=== PATIENT | female | born 1960 | race Hispanic/Latino ===

== ENCOUNTER 2021-01-01 09:34 | Emergency (ER) | payer BC ==
[2021-01-01 09:56] VITALS: BP 132/96
[2021-01-01 11:16] LABS: Hematocrit 37.9 % (30.3-42.9); Hemoglobin 13.1 gm/dl (10.1-14.3); Mean Corpuscular HGB Conc 35 % (30-34); Mean Corpuscular Volume 89 fl (79-97); Platelet Count 297 K/mm3 (140-440); Red Blood Count 4.25 M/mm3 (3.65-5.03); Red Cell Distribution Width 13.7 % (13.2-15.2)
[2021-01-01 11:31] LABS: Alanine Aminotransferase 40 units/L (7-56); Albumin 4.3 g/dL (3.9-5); Blood Urea Nitrogen 22 mg/dL (7-17); Calcium 9.9 mg/dL (8.4-10.2); Hemolysis Index 1
[2021-01-01 11:38] LABS: BUN/Creatinine Ratio 31
[2021-01-01] MEDS ORDERED: SODIUM CHLORIDE 0.9% 1000 ML 1,000 ML IV ONE (14:25)
[2021-01-01] MEDS ORDERED: ONDANSETRON 4 MG/2 ML INJ IV ONE (14:25)
--- NOTE | 2021-01-01 14:30 | Emergency Department Report ---
ED N/V/D HPI - General Chief complaint: Nausea/Vomiting/Diarrhea Stated complaint: VOMITING Time Seen by Provider: 01/01/21 14:24 Source: patient Mode of arrival: Ambulatory Limitations: No Limitations - History of Present Illness Initial comments: 60-year-old female presents to the emergency room stating that she is had vomiting for the last 15 hours that started last night. Patient denies any abdominal pain. She reports of intermittent right hand and arm pain and numbness. Patient has not vomited in the last 4 hours. She reports she was able to drink a soda at 10:00. She states she was struck by half while taking little sips. Patient reports she has a history of anxiety fibromyalgia degenerative disc disease sleep apnea. Patient reports she is followed by Dr. Eh Street. complaint: nausea, vomiting -: Last night Description of Vomiting: food contents, watery Associated Abdominal Pain: No Severity: mild - Related Data Previous Rx's Medication Instructions Recorded Last Taken Type Ondansetron [Zofran Odt] 4 mg PO Q8HR PRN #8 tab.moosedis 01/01/21 Unknown Rx Allergies Allergy/AdvReac Type Severity Reaction Status Date / Time No Known Allergies Allergy Unverified 01/01/21 09:49 ED Review of Systems ROS: Stated complaint: VOMITING Other details as noted in HPI ED Past Medical Hx - Past Medical History Previous Medical History?: Yes Hx Hypertension: Yes Additional medical history: fibromyalgia, sleep apnea, DDD - Surgical History Past Surgical History?: Yes Additional Surgical History: angelica hip replacement, back surgery - Medications Home Medications: Home Medications Medication Instructions Recorded Confirmed Last Taken Type Ondansetron [Zofran Odt] 4 mg PO Q8HR PRN #8 tab.moosedis 01/01/21 Unknown Rx ED Physical Exam - General Limitations: No Limitations General appearance: alert, in no apparent distress - Head Head exam: Present: atraumatic, normocephalic - Eye Eye exam: Present: normal appearance - ENT ENT exam: Present: mucous membranes moist - Neck Neck exam: Present: normal inspection - Respiratory Respiratory exam: Present: normal lung sounds bilaterally. Absent: respiratory distress - Cardiovascular Cardiovascular Exam: Present: regular rate, normal rhythm. Absent: systolic murmur, diastolic murmur, rubs, gallop - GI/Abdominal GI/Abdominal exam: Present: soft, normal bowel sounds - Extremities Exam Extremities exam: Present: normal inspection - Back Exam Back exam: Present: normal inspection - Neurological Exam Neurological exam: Present: alert, oriented X3 - Psychiatric Psychiatric exam: Present: normal affect, normal mood - Skin Skin exam: Present: warm, dry, intact, normal color. Absent: rash ED Course Vital Signs 01/01/21 09:52 Temperature 98.3 F Pulse Rate 96 H Respiratory 20 Rate Blood Pressure 132/96 O2 Sat by Pulse 94 Oximetry - Reevaluation(s) Reevaluation #1: 01/01/21 16:17 Reevaluated patient heart rate is 86 she reports she feels little bit better asking for ice water. ED Medical Decision Making - Lab Data Result diagrams: 01/01/21 10:48 01/01/21 10:48 - Medical Decision Making 60-year-old female presents to the emergency room stating that she is had vomiting for the last 15 hours that started last night. Patient denies any abdominal pain. She reports of intermittent right hand and arm pain and numbness. Patient has not vomited in the last 4 hours. She reports she was able to drink a soda at 10:00. She states she was struck by half while taking little sips. Patient reports she has a history of anxiety fibromyalgia degenerative disc disease sleep apnea. Patient reports she is followed by Dr. Eh Street. Patient has not vomited since being here in the emergency room. Patient was given a liter of normal saline Zofran and passed a p.o. challenge patient is to follow-up with Dr. Street Critical care attestation.: If time is entered above; I have spent that time in minutes in the direct care of this critically ill patient, excluding procedure time. ED Disposition Clinical Impression: Nausea and vomiting in adult Disposition: DC-01 TO HOME OR SELFCARE Is pt being admited?: No Does the pt Need Aspirin: No Condition: Stable Instructions: Nausea and Vomiting, Adult, Crcq-[id number] Prescriptions: Ondansetron [Zofran Odt] 4 mg PO Q8HR PRN #8 tab.rapdis PRN Reason: Nausea And Vomiting Referrals: PRIMARY CARE, [Primary Care Provider] - 3-[address] MD [Staff Physician] - 3-5 Days
[2021-01-01 15:23] LABS: Band Neutrophils # (Manual) 0.2 K/mm3; Platelet Estimate Consistent w Auto; RBC Morphology Normal; Total Cells Counted 100
== END 2021-01-01 17:08 | disposition home or self-care (01) ==
LOC: ED 09:34
DX: R11.2 Nausea with vomiting, unspecified (principal); I10 Essential (primary) hypertension; Z79.899 Other long term (current) drug therapy; Z98.890 Other specified postprocedural states
CPT/HCPCS: 36415; 80053; 85007; 85025; 96361; 96374; 99283; J2405; J7030

== ENCOUNTER 2021-01-31 10:45 | Outpatient (CLI) | payer BC ==
--- NOTE | 2021-01-31 12:58 | Cat Scan Report ---
CT SINONASAL CAVITY WITHOUT CONTRAST CLINICAL HISTORY: chronic sinusitis TECHNIQUE: 2.5 mm thick contiguous axial scans were obtained through the sinonasal cavity. In addition to evalu ation of axial source images sagittal and coronal reconstructions were produced and reviewed for this report. All CT examinations performed at this institution utilize automated dose reduction to achieve A L A R A goals. FINDINGS: PARANASAL SINUSES: A small retention cyst or polyp is identified in the base of the left maxillary si nus posteriorly. Maxillary, ethmoid, sphenoid and frontal sinuses are otherwise free from inflammator y mucosal disease time of this study. NASAL CAVITY: A near midline nasal septum is noted. Paradoxical curvature of the middle turbinates is noted producing narrowing of the air passageways in the region of the middle meatus bilaterally. The re passageways of the nasomaxillary ducts, infundibulum and hiatus semilunaris are narrowed but aerat ed bilaterally. FACIAL BONES:No evidence of fracture or other osseous abnormality TEMPORAL BONES: Normal pneumatization of the mastoid air cells is demonstrated bilaterally. No abnorm alities are seen on evaluation of the middle ear cavities. ORBITS: No abnormalities are identified on evaluation of the orbits on this noncontrast CT sinonasal study. BRANCH SERVICE ASSOCIATE SPACE STRUCTURESNo significant abnormalities are seen to involve the network security architect space stru ctures. CRANIOCERVICAL JUNCTION: No abnormality. VISUALIZED INTRACRANIAL STRUCTURES: Note is made of hyperostosis frontalis interna. Included intracra nial structures have an otherwise unremarkable appearance. IMPRESSION: 1. No significant inflammatory changes are present within the paranasal sinuses. 2. The air passageways of the OM U are narrowed but aerated at the time of this study as described ab santos. Signer Name: Bucky Grewal MD Signed: 01/31/2021 12:53 PM Workstation Name: [id number]
== END 2021-01-31 10:46 | disposition home or self-care (01) ==
LOC: CT 10:45
PROVIDERS: ATTEND Otolaryngology
DX: J32.9 Chronic sinusitis, unspecified (principal)
CPT/HCPCS: 70486

== ENCOUNTER 2021-02-26 13:45 | Outpatient (CLI) | payer BC ==
--- NOTE | 2021-02-26 16:07 | Magnetic Resonance Report ---
MRI LUMBAR SPINE 02/26/2021 INDICATION / CLINICAL INFORMATION: LUMBAR POST-LAMINECTOMY SYNDROME. COMPARISON: None available. FINDINGS: GENERAL OBSERVATIONS: Unenhanced MR images of the lumbar spine were obtained. Right convex scoliosis is centered at the L2-3 level. There is been prior laminectomy and fusion at the L3, L4, and L5 levels. Degenerative changes and can al stenosis is present at L2-3 as described below. [id number] ANALYSIS: L5-S1: Moderate diffuse disc bulging and canal narrowing is present with no evidence of lateralizatio n. L4-5: Status post laminectomy and fusion. Bilateral pedicle screws are present at L4 and L5. L3-4: Status post laminectomy and fusion, with bilateral pedicle screws at L3 and L4. No evidence of stenosis or nerve root compression. L2-3: Disc space narrowing and slight retrolisthesis associated with moderately severe central canal narrowing. L1-2: Mild diffuse disc bulging. BONE MARROW: No significant abnormality. Degenerative changes. 2.2 cm hemangioma at T11. PARASPINAL SOFT TISSUES: No significant abnormality. IMPRESSION: Postoperative and degenerative changes as detailed above. Moderately severe central canal narrowing a t L2-3. Signer Name: Case Edwards MD Signed: 02/26/2021 4:01 PM Workstation Name: [id number]
== END 2021-02-26 13:46 | disposition home or self-care (01) ==
LOC: MRI 13:45
PROVIDERS: ATTEND Anesthesiology
DX: M51.37 Other intervertebral disc degeneration, lumbosacral region (principal); M96.1 Postlaminectomy syndrome, not elsewhere classified; M48.061 Spinal stenosis, lumbar region without neurogenic claudication; M47.817 Spondylosis without myelopathy or radiculopathy, lumbosacral region
CPT/HCPCS: 72148

== ENCOUNTER 2021-04-26 11:55 | Emergency (ER) | payer BC ==
[2021-04-26] MEDS ORDERED: SODIUM CHLORIDE 0.9% 1000 ML 1,000 ML IV ONE (12:30)
[2021-04-26] MEDS ORDERED: ONDANSETRON 4 MG/2 ML INJ IV ONE (12:30)
--- NOTE | 2021-04-26 12:55 | XRay Report ---
Abdominal series with frontal chest INDICATION: Chest pain nausea vomiting IMPRESSION: No acute findings. Signer Name: Ned Wills MD Signed: 04/26/2021 12:51 PM Workstation Name: [id number]
[2021-04-26 13:46] LABS: Basophils % (Auto) 0.5 % (0.0-1.8); Eosinophils # (Auto) 0.1 K/mm3 (0.0-0.4); Eosinophils % (Auto) 0.8 % (0.0-4.3); Hematocrit 45.3 % (30.3-42.9); Lymphocytes % (Auto) 24.3 % (13.4-35.0); Mean Corpuscular HGB Conc 33 % (30-34); Mean Corpuscular Volume 89 fl (79-97); Monocytes # (Auto) 0.9 K/mm3 (0.0-0.8); Monocytes % (Auto) 10.6 % (0.0-7.3); Platelet Count 399 K/mm3 (140-440); Red Blood Count 5.12 M/mm3 (3.65-5.03); Red Cell Distribution Width 14.9 % (13.2-15.2)
[2021-04-26 14:06] LABS: Alanine Aminotransferase 45 units/L (7-56); Albumin 4.7 g/dL (3.9-5); BUN/Creatinine Ratio 26; Blood Urea Nitrogen 21 mg/dL (7-17); Calcium 9.7 mg/dL (8.4-10.2); Hemolysis Index 6
--- NOTE | 2021-04-26 15:23 | Emergency Department Report ---
ED N/V/D HPI - General Chief complaint: Nausea/Vomiting/Diarrhea Stated complaint: VOMITTING Time Seen by Provider: 04/26/21 12:15 Source: patient Mode of arrival: Wheelchair Limitations: No Limitations - History of Present Illness Initial comments: This is a 60-year-old female nontoxic, well nourished in appearance, no acute signs of distress presents to the ED with c/o of nausea and vomiting several days. Patient stated has also constipation. Patient stated she is on narcotics for chronic pain which stated caused her to have constipation. Patient describes vomiting as food content. Patient denies any abdominal pain, chest pain, short of breath, fever, chills, headache, stiff neck, numbness or tingling. Patient denies any diarrhea. Denies any blood in stool. Patient denies any recent travels. Patient denies any drug allergies. MD complaint: nausea, vomiting -: days(s) Associated Abdominal Pain: No Radiation: none Severity: mild Pain Scale: 0 Improves with: none Worsens with: none Associated Symptoms: nausea/vomiting. denies: myalgias, chest pain, cough, diaphoresis, fever/chills, headaches, loss of appetite, malaise, rash, dysuria, shortness of breath, syncope, weakness - Related Data Previous Rx's Medication Instructions Recorded Last Taken Type Ondansetron [Zofran Odt] 4 mg PO Q8HR PRN #8 tab.rapdis 01/01/21 Unknown Rx Ondansetron [Zofran Odt] 4 mg PO Q8HR PRN #12 tab.rapdis 04/26/21 Unknown Rx Allergies Allergy/AdvReac Type Severity Reaction Status Date / Time No Known Allergies Allergy Verified 04/26/21 12:00 ED Review of Systems ROS: Stated complaint: VOMITTING Other details as noted in HPI Comment: All other systems reviewed and negative Constitutional: denies: chills, fever Eyes: denies: eye pain, eye discharge, vision change ENT: denies: ear pain, throat pain Respiratory: denies: cough, shortness of breath, wheezing Cardiovascular: denies: chest pain, palpitations Endocrine: no symptoms reported Gastrointestinal: nausea, vomiting. denies: abdominal pain, diarrhea, constipation, hematemesis, melena, hematochezia Genitourinary: denies: urgency, dysuria, discharge Musculoskeletal: denies: back pain, joint swelling, arthralgia Skin: denies: rash, lesions Neurological: denies: headache, weakness, paresthesias Psychiatric: denies: anxiety, depression Hematological/Lymphatic: denies: easy bleeding, easy bruising ED Past Medical Hx - Past Medical History Previous Medical History?: Yes Hx Hypertension: Yes Additional medical history: fibromyalgia, sleep apnea, DDD - Surgical History Past Surgical History?: Yes Additional Surgical History: angelica hip replacement, back surgery - Social History Smoking Status: Never Smoker - Medications Home Medications: Home Medications Medication Instructions Recorded Confirmed Last Taken Type Ondansetron [Zofran Odt] 4 mg PO Q8HR PRN #8 tab.rapdis 01/01/21 Unknown Rx Ondansetron [Zofran Odt] 4 mg PO Q8HR PRN #12 tab.rapdis 04/26/21 Unknown Rx ED Physical Exam - General Limitations: No Limitations General appearance: alert, in no apparent distress - Head Head exam: Present: atraumatic, normocephalic - Eye Eye exam: Present: normal appearance - Neck Neck exam: Present: normal inspection, full ROM. Absent: lymphadenopathy - Respiratory Respiratory exam: Present: normal lung sounds bilaterally. Absent: respiratory distress, wheezes, rales, rhonchi, stridor, chest wall tenderness, accessory muscle use, decreased breath sounds, prolonged expiratory - Cardiovascular Cardiovascular Exam: Present: normal rhythm, tachycardia, normal heart sounds. Absent: irregular rhythm, systolic murmur, diastolic murmur, rubs, gallop - GI/Abdominal GI/Abdominal exam: Present: soft, normal bowel sounds. Absent: distended, tenderness, guarding, rebound, rigid, diminished bowel sounds - Extremities Exam Extremities exam: Present: normal inspection, full ROM, normal capillary refill. Absent: tenderness - Back Exam Back exam: Present: normal inspection, full ROM. Absent: tenderness, CVA tenderness (R), CVA tenderness (L), muscle spasm, paraspinal tenderness, vertebral tenderness, rash noted - Neurological Exam Neurological exam: Present: alert, oriented X3, normal gait - Psychiatric Psychiatric exam: Present: normal affect, normal mood - Skin Skin exam: Present: warm, dry, intact, normal color. Absent: rash ED Course Vital Signs 04/26/21 04/26/21 04/26/21 11:59 13:00 13:16 Temperature 99.2 F Pulse Rate 105 H Respiratory 18 Rate Blood Pressure 146/110 131/98 Blood Pressure 128/101 [Left] O2 Sat by Pulse 99 94 92 Oximetry 04/26/21 04/26/21 04/26/21 13:30 13:40 14:00 Temperature Pulse Rate Respiratory Rate Blood Pressure 146/110 152/89 Blood Pressure [Left] O2 Sat by Pulse 94 95 94 Oximetry 04/26/21 04/26/21 04/26/21 15:00 16:30 16:32 Temperature 99.7 F H Pulse Rate 100 H Respiratory 14 Rate Blood Pressure 142/90 148/92 Blood Pressure 148/92 [Left] O2 Sat by Pulse 96 91 97 Oximetry 04/26/21 17:00 Temperature Pulse Rate Respiratory Rate Blood Pressure 126/87 Blood Pressure [Left] O2 Sat by Pulse 93 Oximetry - Reevaluation(s) Reevaluation #1: 04/26/21 15:24 Patient is speaking in full sentences with no signs of distress noted. ED Medical Decision Making - Lab Data Result diagrams: 04/26/21 12:52 04/26/21 12:51 Lab Results 04/26/21 04/26/21 04/26/21 Range/Units 12:51 12:52 15:17 WBC 8.3 (4.5-11.0) K/mm3 RBC 5.12 H (3.65-5.03) M/mm3 Hgb 15.0 H (10.1-14.3) gm/dl Hct 45.3 H (30.3-42.9) % MCV 89 (79-97) fl MCH 29 (28-32) pg MCHC 33 (30-34) % RDW 14.9 (13.2-15.2) % Plt Count 399 (140-440) K/mm3 Lymph % (Auto) 24.3 (13.4-35.0) % [place] % (Auto) 10.6 H (0.0-7.3) % Eos % (Auto) 0.8 (0.0-4.3) % Baso % (Auto) 0.5 (0.0-1.8) % Lymph # (Auto) 2.0 (1.2-5.4) K/mm3 [place] # (Auto) 0.9 H (0.0-0.8) K/mm3 Eos # (Auto) 0.1 (0.0-0.4) K/mm3 Baso # (Auto) 0.0 (0.0-0.1) K/mm3 Seg Neutrophils % 63.8 (40.0-70.0) % Seg Neutrophils # 5.3 (1.8-7.7) K/mm3 Sodium 139 (137-145) mmol/L Potassium 4.0 (3.6-5.0) mmol/L Chloride 97.3 L (98-107) mmol/L Carbon Dioxide 25 (22-30) mmol/L Anion Gap 21 mmol/L BUN 21 H (7-17) mg/dL Creatinine 0.8 (0.6-1.2) mg/dL Estimated GFR > 60 ml/min BUN/Creatinine Ratio 26 % Glucose 101 H (65-100) mg/dL Calcium 9.7 (8.4-10.2) mg/dL Total Bilirubin 0.90 (0.1-1.2) mg/dL AST 52 H (5-40) units/L ALT 45 (7-56) units/L Alkaline Phosphatase 134 H (35-129) units/L Total Protein 8.1 (6.3-8.2) g/dL Albumin 4.7 (3.9-5) g/dL Albumin/Globulin Ratio 1.4 % Lipase 37 (13-60) units/L Urine Color Loren (Yellow) Urine Turbidity Slightly-cloudy (Clear) Urine pH 5.0 (5.0-7.0) Ur Specific [place] 1.027 (1.003-1.030) Urine Protein 30 mg/dl (Negative) mg/dL Urine Glucose (UA) Neg (Negative) mg/dL Urine Ketones Tr (Negative) mg/dL Urine Blood Neg (Negative) Urine Nitrite Neg (Negative) Urine Bilirubin Neg (Negative) Urine Urobilinogen < 2.0 (<2.0) mg/dL Ur Leukocyte Esterase Neg (Negative) Urine WBC (Auto) 2.0 (0.0-6.0) /HPF Urine RBC (Auto) 4.0 (0.0-6.0) /HPF U Epithel Cells (Auto) 11.0 (0-13.0) /HPF Urine Mucus 3+ /HPF - Radiology Data [facility] [address] [place] [address] XRay Report Signed Patient: SOCORRO QUINTANA MR#: [id number] : 1960 Acct:[id number] Age/Sex: 60 / F ADM Date: 04/26/21 Loc: ED Attending Dr: Ordering Physician: NIRALI WOLF NP Date of Service: 04/26/21 Procedure(s): XR abd series w cxr 1V Accession Number(s): [id number] cc: NIRALI WOLF NP Fluoro Time In Minutes: Abdominal series with frontal chest INDICATION: Chest pain nausea vomiting IMPRESSION: No acute findings. Signer Name: Ned Wills MD Signed: 04/26/2021 12:51 PM Workstation Name: [id number] Transcribed By: BC Dictated By: Ned Wills MD Electronically Authenticated By: Ned Wills MD Signed Date/Time: 04/26/21 125 DD/ 1250 TD/TT: [address] [address] Cat Scan Report Signed Patient: SOCORRO QUINTANA MR#: [id number] : 1960 Acct:[id number] Age/Sex: 60 / F ADM Date: 04/26/21 Loc: ED Attending Dr: Ordering Physician: NIRALI WOLF NP Date of Service: 04/26/21 Procedure(s): CT abdomen pelvis w con Accession Number(s): [id number] cc: NIRALI WOLF NP CT ABDOMEN AND PELVIS WITH CONTRAST INDICATION / CLINICAL INFORMATION: Abd pain no bowel movement x4days n/v-PO AND IV CONTRAST [id number] 100ml. TECHNIQUE: Axial CT images were obtained through the abdomen and pelvis after IV contrast. All CT scans at this location are performed using CT dose reduction for ALARA by means of automated exposure control. COMPARISON: None available. FINDINGS: LOWER CHEST: No significant abnormality. LIVER: No significant abnormality. GALLBLADDER: No significant abnormality. PANCREAS: No significant abnormality. SPLEEN: No significant abnormality. ADRENALS: No significant abnormality. RIGHT KIDNEY / URETER: No significant abnormality. LEFT KIDNEY / URETER: No significant abnormality. STOMACH / SMALL BOWEL: No significant abnormality. COLON: Diverticulosis without acute inflammation. APPENDIX: No significant abnormality. PERITONEUM: No free fluid, free air or organized collection. LYMPH NODES: No significant adenopathy. AORTA / ARTERIES/ VEINS: No significant abnormality. URINARY BLADDER: No significant abnormality. REPRODUCTIVE ORGANS: No significant abnormality. ADDITIONAL FINDINGS: None. SKELETAL SYSTEM: Postsurgical change is from posterior fusion L3-L5. Rate 1 retrolisthesis L2-3 with essentially complete space height loss at the L2-3 level. Postsurgical changes from bilateral hip arthroplasties are noted. IMPRESSION: 1. No acute abnormality. 2. Chronic findings as above. Signer Name: Gordo Staley MD Signed: 04/26/2021 4:52 PM Workstation Name: [id number] Transcribed By: SB Dictated By: GORDO STALEY MD Electronically Authenticated By: GORDO STALEY MD Signed Date/Time: 04/26/211651 DD/ 48 TD/TT: - Medical Decision Making This is a 60-year-old female that presents with abdominal pain, n/v. Patient is stable and was examined by me. Labs obtained. UA obtained. CT/Xray of abdomen obtained and dictated by the radiologist. Patient is notified of the report with no questions noted by the patient. Vital signs are stable prior to discharge. Patient received medical treatment in the ED which patient stated symptoms has resolved and subsided. Was instructed note to operate any machinery due to possible drowsiness and stated someone will drive the patient home. A by mouth challenge has been obtained and patient tolerated well with no nausea vomiting. Patient was also instructed to Follow-up with a primary care and road mixer operator doctor in 3-5 days or if symptoms worsen and continue return to emergency room as soon as possible. At time of discharge, the patient does not seem toxic or ill in appearance. No acute signs of distress noted. Patient agrees to discharge treatment plan of care. No further questions noted by the patient. Critical care attestation.: If time is entered above; I have spent that time in minutes in the direct care of this critically ill patient, excluding procedure time. ED Disposition Clinical Impression: Nausea & vomiting Qualifiers: Vomiting type: unspecified Vomiting Intractability: non-intractable Qualified Code(s): R11.2 - Nausea with vomiting, unspecified Disposition: 01 HOME / SELF CARE / HOMELESS Is pt being admited?: No Does the pt Need Aspirin: No Condition: Stable Instructions: Nausea and Vomiting, Adult Additional Instructions: Follow-up with a primary care and road mixer operator doctor in 3-5 days or if symptoms worsen and continue return to emergency room as soon as possible. Prescriptions: Ondansetron [Zofran Odt] 4 mg PO Q8HR PRN #12 tab.rapdis PRN Reason: Nausea Referrals: PRIMARY MD DENNIS [Primary Care Provider] - 3-5 Days EUGENIO ARANGO MD [Staff Physician] - 3-5 Days [facility] [Provider Group] - 3-5 Days Forms: Work/School Release Form(ED)
[2021-04-26 15:50] LABS: Bilirubin,Urine NEG (Negative); Blood,Urine NEG (Negative); Color,Urine Amber (Yellow); Mucus,Urine 3+ /HPF; Urobilinogen,Urine < 2.0 mg/dL (<2.0)
--- NOTE | 2021-04-26 16:56 | Cat Scan Report ---
CT ABDOMEN AND PELVIS WITH CONTRAST INDICATION / CLINICAL INFORMATION: Abd pain no bowel movement x4days n/v-PO AND IV CONTRAST [id number] 10 0ml. TECHNIQUE: Axial CT images were obtained through the abdomen and pelvis after IV contrast. All CT sc ans at this location are performed using CT dose reduction for ALARA by means of automated exposure c ontrol. COMPARISON: None available. FINDINGS: LOWER CHEST: No significant abnormality. LIVER: No significant abnormality. GALLBLADDER: No significant abnormality. PANCREAS: No significant abnormality. SPLEEN: No significant abnormality. ADRENALS: No significant abnormality. RIGHT KIDNEY / URETER: No significant abnormality. LEFT KIDNEY / URETER: No significant abnormality. STOMACH / SMALL BOWEL: No significant abnormality. COLON: Diverticulosis without acute inflammation. APPENDIX: No significant abnormality. PERITONEUM: No free fluid, free air or organized collection. LYMPH NODES: No significant adenopathy. AORTA / ARTERIES/ VEINS: No significant abnormality. URINARY BLADDER: No significant abnormality. REPRODUCTIVE ORGANS: No significant abnormality. ADDITIONAL FINDINGS: None. SKELETAL SYSTEM: Postsurgical change is from posterior fusion L3-L5. Rate 1 retrolisthesis L2-3 with essentially complete space height loss at the L2-3 level. Postsurgical changes from bilateral hip art hroplasties are noted. IMPRESSION: 1. No acute abnormality. 2. Chronic findings as above. Signer Name: Gordo Staely MD Signed: 04/26/2021 4:52 PM Workstation Name: [id number]
[2021-04-26 17:01] VITALS: BP 126/87
== END 2021-04-26 17:14 | disposition home or self-care (01) ==
LOC: ED 11:55
DX: R11.2 Nausea with vomiting, unspecified (principal); I10 Essential (primary) hypertension
CPT/HCPCS: 36415; 74022; 74177; 80053; 81001; 83690; 85025; 96361; 96374; 99284; J2405; J7030; Q9967; Q0162

== ENCOUNTER 2021-06-20 10:34 | Outpatient (CLI) | payer BC ==
--- NOTE | 2021-06-20 11:58 | Cat Scan Report ---
CT lower extremity RT wo con INDICATION: RIGHT HIP PAIN. TECHNIQUE: All CT scans at this location are performed using CT dose reduction for ALARA by means of automated e xposure control. COMPARISON: None available. FINDINGS: Right total hip arthroplasty is present without periprosthetic fracture or osteolysis. There is a mod erate amount of fluid within the greater trochanteric bursa IMPRESSION: 1. Moderate right greater trochanteric bursitis. Underlying gluteal tendon tear cannot be evaluated o n CT. Dedicated ultrasound or MRI may be useful to assess the gluteal tendons as warranted clinically . 2. No periprosthetic fracture, loosening or hardware failure of right hip Signer Name: Manuel Gaspar MD Signed: 06/20/2021 11:54 AM Workstation Name: [id number] [id number]
== END 2021-06-20 10:35 | disposition home or self-care (01) ==
LOC: CT 10:34
PROVIDERS: ATTEND Psychiatry & Neurology Neurology
DX: M71.571 Other bursitis, not elsewhere classified, right ankle and foot (principal); G89.29 Other chronic pain; M54.41 Lumbago with sciatica, right side

== ENCOUNTER 2021-08-06 11:55 | Outpatient (CLI) | payer BC ==
[2021-08-06 12:46] LABS: Basophils # (Auto) 0.1 K/mm3 (0.0-0.1); Basophils % (Auto) 0.8 % (0.0-1.8); Eosinophils # (Auto) 0.3 K/mm3 (0.0-0.4); Eosinophils % (Auto) 4.4 % (0.0-4.3); Hematocrit 38.5 % (30.3-42.9); Hemoglobin 13.2 gm/dl (10.1-14.3); Lymphocytes # (Auto) 2.2 K/mm3 (1.2-5.4); Lymphocytes % (Auto) 36.8 % (13.4-35.0); Mean Corpuscular HGB Conc 34 % (30-34); Mean Corpuscular Volume 89 fl (79-97); Monocytes # (Auto) 0.5 K/mm3 (0.0-0.8); Monocytes % (Auto) 8.5 % (0.0-7.3); Platelet Count 336 K/mm3 (140-440); Red Blood Count 4.31 M/mm3 (3.65-5.03); Red Cell Distribution Width 13.7 % (13.2-15.2)
[2021-08-06 12:52] LABS: Bilirubin,Urine SM (Negative); Blood,Urine NEG (Negative); Calcium Oxalate Crystals,Urine 1+; Color,Urine Amber (Yellow); Mucus,Urine 3+ /HPF
[2021-08-06 12:54] LABS: Ictotest,Urine Negative (Negative)
[2021-08-06 13:12] LABS: Alanine Aminotransferase 30 units/L (7-56); Albumin 4.3 g/dL (3.9-5); Blood Urea Nitrogen 13 mg/dL (7-17); Calcium 9.7 mg/dL (8.4-10.2); Hemolysis Index 4
[2021-08-06 13:21] LABS: BUN/Creatinine Ratio 19
== END 2021-08-06 11:56 | disposition home or self-care (01) ==
LOC: LAB 11:55
PROVIDERS: ATTEND Internal Medicine
DX: Z01.810 Encounter for preprocedural cardiovascular examination (principal); R73.09 Other abnormal glucose; E21.5 Disorder of parathyroid gland, unspecified; E66.9 Obesity, unspecified; R73.9 Hyperglycemia, unspecified
CPT/HCPCS: 36415; 80053; 81001; 83036; 83970; 85025

== ENCOUNTER 2021-08-31 08:00 | Inpatient (IN) | payer BC ==
--- NOTE | 2021-08-29 12:41 | Anesthesia Consultation ---
Anesthesia Consult and Med Hx Date of service: 08/31/21 - Airway Anesthetic Teeth Evaluation: Good ROM Head & Neck: Adequate Mental/Hyoid Distance: Adequate Mallampati Class: Class I Intubation Access Assessment: Good - Pulmonary Exam CTA: Yes - Cardiac Exam Cardiac Exam: RRR - Pre-Operative Health Status ASA Pre-Surgery Classification: ASA3 Proposed Anesthetic Plan: General - Pulmonary Hx Smoking: No Hx Respiratory Symptoms: No (recent normal PFTs and CXR) Hx Sleep Apnea: Yes (previously on CPAP and planning to restart) - Cardiovascular System Hx Hypertension: Yes Hx Heart Attack/AMI: No Hx Percutaneous Transluminal Coronary Angioplasty (PTCA): No Hx Cardia Arrhythmia: No (hx episodic hypotension and syncope w/ neg cardiac work up per patient) Hx Pacemaker: No Hx Internal Defibrillator: No - Central Nervous System Hx Neuromuscular Disorder: No (fibromyalgia, OA, RLS) CVA: No Hx Back Pain: Yes (w/ b/l leg pain R>L) - Gastrointestinal Hx Gastroesophageal Reflux Disease: Yes - Endocrine Hx Renal Disease: No (BUN/advice nurse: 13/0.7 on outpatient labs 08/06/21) Hx Liver Disease: No Hx Insulin Dependent Diabetes: No (A1c 5.4) Hx Non-Insulin Dependent Diabetes: No Hx Thyroid Disease: No - Hematic Hx Anemia: No (H/H/plt: 13/38/336 on outpatient labs 08/06/21) - Other Systems Hx Obesity: Yes (BMI 36) - Additional Comments Anesthesia Medical History Comments: No hx anesthetic complications. Medical and pulmonary preop evals on chart reviewed.
[~2021-08-31 08:00] MED LIST: ACETAMINOPHEN 500 MG TAB PO SCH; GABAPENTIN 300 MG CAP PO NR; LACTATED RINGERS 1,000 ML IV SCH
[2021-09-01] MEDS ORDERED: ceFAZolin/STERILE WATER 2 GM/20 ML SYRINGE IV NR (08:00)
[2021-09-07] MEDS ORDERED: methOCARBAMOL 1,000 MG in SODIUM CHLORIDE 0.9% 250ML 250 ML IV SCH (06:00)
[2021-09-07] MEDS ORDERED: MIDAZOLAM 2 MG/2 ML INJ IV SCH (06:00)
[2021-09-07] MEDS ORDERED: ACETAMINOPHEN 500 MG TAB PO SCH (06:00)
[2021-09-07] MEDS ORDERED: LACTATED RINGERS 1,000 ML IV SCH (06:00)
[2021-09-07] MEDS ORDERED: SCOPOLAMINE TRANSDERMAL PATCH 72 HR TD NR (06:00)
[2021-09-07] MEDS ORDERED: LIDOCAINE 2%/EPINEPHRINE 1:100,000 VIAL (20 ML) INFILTRATI ONE ×2 (07:19→10:06)
[2021-09-07] MEDS ORDERED: SUCCINYLCHOLINE CHLORIDE 200 MG/10 ML INJ MDV ONE (07:20)
[2021-09-07] MEDS ORDERED: fentaNYL 100 MCG/2 ML INJ ONE (07:20)
[2021-09-07] MEDS ORDERED: LIDOCAINE MPF (2%) 20 MG/1 ML VIAL 5 ML ONE ×4 (07:20→07:34)
[2021-09-07] MEDS ORDERED: KETAMINE/STERILE WATER 50 MG/ML SYRINGE ONE ×2 (07:21→07:36)
--- NOTE | 2021-09-07 07:22 | Anesthesia Day of Surgery ---
Anesthesia Day of Surgery - Day of Surgery Patient Examined: Yes Patient H&P Reviewed: Yes Patient is NPO: Yes
[2021-09-07 07:26] LABS: Hematocrit 36.3 % (30.3-42.9); Hemoglobin 12.1 gm/dl (10.1-14.3)
[2021-09-07] MEDS ORDERED: MAGNESIUM SULFATE 4 GM/100 ML BAG IV ONE (07:33)
--- NOTE | 2021-09-07 07:34 | History and Physical Report ---
History of Present Illness Date of examination: 09/07/21 Date of admission: 09/07/21 06:14 Chief complaint: Back pain History of present illness: Lizzy Jett is a 61 y/o Female that presents to the clinic today for surgical intervention. She has chronic intractable low back pain refractory to conservative measures. She has undergone multiple posterior lumbar operations in the past. Her MRI demonstrates adjacent segment pathology at L2-3 with disc bulge causing moderate stenosis. Past History Past Surgical History: Other (lumbar fusion) Medications and Allergies Allergies Allergy/AdvReac Type Severity Reaction Status Date / Time No Known Allergies Allergy Verified 04/26/21 12:00 Home Medications Medication Instructions Recorded Confirmed Last Taken Type Bupropion HCl [Wellbutrin XL] 300 mg PO DAILY 08/22/21 08/22/21 Unknown History Duloxetine HCl [Cymbalta] 60 mg PO DAILY 08/22/21 08/22/21 Unknown History Excedrin 1 tab PO PRN PRN 08/22/21 08/22/21 Unknown History Gabapentin [Neurontin] 800 mg PO TID 08/22/21 08/22/21 Unknown History HYDROcodone/ACETAMINOPHEN 1 each PO PRN PRN 08/22/21 08/22/21 Unknown History [Verdrocet 2.5-325 mg TAB] Lisinopril/Hydrochlorothiazide 1 each PO DAILY 08/22/21 08/22/21 Unknown History [Zestoretic 10-12.5 mg Tablet] Multivit-Min/Iron/Folic/Lutein 1 each PO DAILY 08/22/21 08/22/21 Unknown History [Centrum Silver Women Tablet] Pantoprazole [Protonix] 40 mg PO QDAY 08/22/21 08/22/21 Unknown History Pramipexole [Mirapex] 1.5 mg PO TID 08/22/21 08/22/21 Unknown History SUMAtriptan SUCCINATE [Imitrex] 50 mg PO PRN PRN 08/22/21 08/22/21 Unknown History hydrOXYzine HCL [Atarax] 10 mg PO PRN PRN 08/22/21 08/22/21 Unknown History Active Meds: Active Medications Acetaminophen (Acetaminophen 500 Mg Tab) 1,000 mg PO PREOP TORIBIO Cefazolin Sodium (Cefazolin/Sterile Water 2 Gm/20 Ml Syringe) 2 gm IV PREOP NR Stop: 09/07/21 20:00 Hydromorphone HCl (Hydromorphone 1 Mg/1 Ml Inj) 0.5 mg IV Q10MIN PRN PRN Reason: Pain , Severe (7-10) Lactated Ringer's (Lactated Ringers) 1,000 mls @ 100 mls/hr IV DIRECT TORIBIO Stop: 09/07/21 23:59 Methocarbamol 1,000 mg/ Sodium (Chloride) 260 mls @ 250 mls/hr IV PREOP TORIBIO Midazolam HCl (Midazolam 2 Mg/2 Ml Inj) 2 mg IV PREOP TORIBIO Ondansetron HCl (Ondansetron 4 Mg/2 Ml Inj) 4 mg IV ONCE PRN PRN Reason: Nausea And Vomiting Scopolamine (Scopolamine Transdermal Patch 72 Hr) 1 each TD PREOP NR Stop: 09/07/21 23:00 Review of Systems All systems: negative (what is specified in HPI) Physical Examination - Vital Signs Vital Signs: Vital Signs Temp Pulse Resp BP Pulse Ox 98 F 90 20 147/93 98 08/29/21 09:25 08/29/21 09:25 08/29/21 09:25 08/29/21 09:25 08/29/21 09:25 - Physical Exam Narrative exam: seen and examined no acute distress NC/AT RRR breathing non-labored abdomen soft no cyanosis or clubbing A&Ox3 CNII-XII intact motor strength full throughout sensation intact reflexes +2 Assessment and Plan 61 y/o F w/ adjacent segment pathology, L2-3 stenosis with neurogenic claudication -to OR for L2-3 XLIF
[2021-09-07] MEDS ORDERED: ceFAZolin/STERILE WATER 2 GM/20 ML SYRINGE IV NR (08:00)
[2021-09-07] MEDS ORDERED: ePHEDrine SULFATE 50 MG/1 ML INJ ONE (08:04)
[2021-09-07] MEDS ORDERED: VASOPRESSIN 20 UNIT/1 ML INJ ONE (08:15)
[2021-09-07] MEDS ORDERED: ALBUMIN HUMAN 5% (12.5 GM/250 ML) INJ IV ONE (08:15)
[2021-09-07] MEDS ORDERED: ONDANSETRON 4 MG/2 ML INJ IV PRN ×2 (08:30→14:49)
[2021-09-07] MEDS ORDERED: SODIUM CHLORIDE 0.9% IRR 1,500 ML BOTTLE IR ONE (09:16)
[2021-09-07] MEDS ORDERED: dexAMETHasone 20 MG/5 ML VIAL ONE (09:23)
[2021-09-07] MEDS ORDERED: ONDANSETRON 4 MG/2 ML INJ ONE (09:23)
[2021-09-07] MEDS ORDERED: BUPIVACAINE/PF (0.5%) 5 MG/1 ML 30 ML VIAL INFILTRATI ONE ×2 (10:33→10:35)
[2021-09-07] MEDS ORDERED: VANCOMYCIN 1000 MG INJ ONE (10:37)
[2021-09-07] MEDS ORDERED: KETOROLAC 30 MG/1 ML INJ ONE (10:39)
[2021-09-07] MEDS ORDERED: GLYCOPYRROLATE 0.4 MG/2 ML INJ ONE (10:48)
--- NOTE | 2021-09-07 10:49 | Post Operative Note ---
Pre-op diagnosis: lumbar stenosis with neurogenic claudication Post-op diagnosis: same Findings: significant spondylosis at L2-3 with disc height loss Procedure: L2-3 Lateral lumbar interbody fusion Anesthesia: GETA Surgeon: TERRA AMADOR II Estimated blood loss: minimal Pathology: none Specimen disposition: other (none) Condition: stable Disposition: PACU
--- NOTE | 2021-09-07 11:37 | XRay Report ---
Lumbar spine 2 views INDICATION: Sciatica IMPRESSION: 3.9 minutes of fluoroscopy time utilized for surgery. Postsurgical change at L3-L4 and L4 -L5. Signer Name: Og Maldonado MD Signed: 09/07/2021 11:33 AM Workstation Name: [id number]
[2021-09-07] MEDS ORDERED: hydrOXYzine HCL 10 MG TAB PO PRN (12:13)
[2021-09-07] MEDS: HYDROmorphone 1 MG/1 ML INJ IV PRN ×2 (12:42→13:35)
[2021-09-07] MEDS ORDERED: ceFAZolin/Water 2 GM/20 ML 2 GM/20 ML SYRINGE IV SCH (13:00)
--- NOTE | 2021-09-07 13:12 | Post Anesthesia Evaluation ---
- Post Anesthesia Evaluation Patient Participated: Yes Airway Patent: Yes Stable Respiratory Function: Yes Nausea/Vomiting: No Temp > 96.8F: Yes Pain Manageable: Yes Adequeate Hydration: Yes Anesthesia Complications: No Other Comments: No gross neuro deficits. Patient able to transport herself from stretcher to hospital bed with minimal assistance.
[2021-09-07] MEDS: PRAMIPEXOLE 0.5 MG TAB PO SCH ×2 (14:00→21:05)
[2021-09-07] MEDS: PANTOPRAZOLE 40 MG TAB PO SCH (14:00)
[2021-09-07] MEDS ORDERED: SUMAtriptan SUCCINATE 50 MG TAB PO PRN (14:00)
[2021-09-07] MEDS ORDERED: NON-FORMULARY EACH (Gabapentin [Neurontin] 800 MG Tablet) PO SCH (14:00)
[2021-09-07] MEDS ORDERED: PRAMIPEXOLE 1 MG PO SCH (14:00)
[2021-09-07] MEDS ORDERED: KETOROLAC 30 MG/1 ML INJ IV PRN (14:49)
[2021-09-07] MEDS ORDERED: SODIUM CHLORIDE 0.9% 1000 ML 1,000 ML IV SCH (14:49)
[2021-09-07] MEDS ORDERED: ACETAMINOPHEN 325 MG TAB PO PRN (14:49)
[2021-09-07] MEDS: GABAPENTIN 400 MG CAP PO SCH ×2 (15:13→21:05)
[2021-09-07] MEDS: oxyCODONE /ACETAMINOPHEN 5-325MG TAB PO PRN ×2 (15:13→23:35)
[2021-09-07] MEDS: MORPHINE 4 MG/1 ML INJ IV PRN ×2 (16:24→20:32)
[2021-09-07] MEDS: SENNOSIDES 8.6 MG TAB PO SCH (21:05)
[2021-09-07] MEDS: DOCUSATE SODIUM 100 MG CAP PO SCH (21:05)
[2021-09-08] MEDS: MORPHINE 4 MG/1 ML INJ IV PRN ×2 (03:17→11:02)
[2021-09-08 04:59] VITALS: BP 114/60
[2021-09-08] MEDS: PRAMIPEXOLE 0.5 MG TAB PO SCH (05:22)
[2021-09-08] MEDS: oxyCODONE /ACETAMINOPHEN 5-325MG TAB PO PRN (05:22)
[2021-09-08] MEDS: GABAPENTIN 400 MG CAP PO SCH (05:22)
[2021-09-08 05:51] LABS: BUN/Creatinine Ratio 16; Blood Urea Nitrogen 13 mg/dL (7-17); Calcium 8.6 mg/dL (8.4-10.2); Hemolysis Index 11
--- NOTE | 2021-09-08 06:45 | Progress Note ---
Assessment and Plan - Patient Problems (1) Lumbar stenosis with neurogenic claudication Current Visit: Yes Status: Acute Plan to address problem: pt doing well, clear for discharge home pt to follow up in 2 weeks for wound check Subjective Date of service: 09/08/21 Interval history: RITCHIE; pt stable overnight. She reports left hip/thigh numbness without weakness Objective - Exam Narrative Exam: seen and examined NAD A&Ox3 CNII-XII intact MAEW sensation intact incision c/d/i - Vital Sign Vital Signs - 12hr 09/07/21 09/07/21 09/07/21 21:00 22:00 22:07 Temperature 99.0 F Pulse Rate 88 Respiratory Rate Blood Pressure 159/86 O2 Sat by Pulse 99 98 95 Oximetry 09/08/21 04:57 Temperature 98.1 F Pulse Rate 89 Respiratory 19 Rate Blood Pressure 114/60 O2 Sat by Pulse 91 Oximetry - Laboratory Findings CBC and BMP: 09/07/21 07:10 09/08/21 05:17 Abnormal Lab Findings: Abnormal Labs 09/08/21 05:17 Glucose 140 H
[2021-09-08] MEDS: SENNOSIDES 8.6 MG TAB PO SCH (09:50)
[2021-09-08] MEDS: PANTOPRAZOLE 40 MG TAB PO SCH (09:51)
[2021-09-08] MEDS: DOCUSATE SODIUM 100 MG CAP PO SCH (09:51)
[2021-09-08] MEDS ORDERED: NON-FORMULARY EACH (Duloxetine Hcl [Cymbalta] 60 MG Capsule.Dr) PO SCH (10:00)
[2021-09-08] MEDS ORDERED: buPROPion XL 150 MG TAB PO SCH (10:00)
[2021-09-08] MEDS ORDERED: PANTOPRAZOLE 40 MG TAB PO SCH (10:00)
[2021-09-08] MEDS ORDERED: MULTIVITAMINS,THER W-MINERALS TAB PO SCH (10:00)
[2021-09-08] MEDS ORDERED: DULoxetine 30 MG CAP PO SCH (10:00)
[2021-09-08] MEDS ORDERED: [UNRECOGNIZED DRUG - OTHER] PO SCH (10:00)
[2021-09-08] MEDS ORDERED: IRON PO SCH (10:00)
[2021-09-08] MEDS ORDERED: FOLIC PO SCH (10:00)
[2021-09-08] MEDS ORDERED: MULTIVIT MIN PO SCH (10:00)
[2021-09-08] MEDS ORDERED: NON-FORMULARY EACH (Bupropion Hcl [Wellbutrin Xl] 300 MG Tab.Er.24h) PO SCH (10:00)
[2021-09-08] MEDS ORDERED: LUTEIN PO SCH (10:00)
--- NOTE | 2021-09-09 01:55 | Consultation ---
DATE OF CONSULTATION: 09/07/2021 PREOPERATIVE DIAGNOSES: 1. L2-L3 degenerative retrolisthesis. 2. Degenerative disk disease at L2-L3. POSTOPERATIVE DIAGNOSES: 1. L2-L3 degenerative retrolisthesis. 2. Degenerative disk disease at L2-L3 PROCEDURES PERFORMED: 1. Retroperitoneal approach lateral lumbar interbody fusion with PEEK intervertebral device with integrated superior screw fixation (Globus Manjula integrated cage). 2. Use of morcellized allograft for the purposes of interbody arthrodesis. 3. Use of intraoperative nerve monitoring. 4. Physician direction and interpretation of intraoperative fluoroscopy. SURGEON: Antonino Cross II, MD. RESTAURANT BUSSER: JAYLAN De La O. ANESTHESIA: General endotracheal anesthesia. BLOOD LOSS: Minimal. COMPLICATIONS: None apparent. DISPOSITION: Stable, extubated to the recovery unit. BRIEF HISTORY: The patient is a 61-year-old female with a history of chronic low back pain. She underwent a multilevel lumbar fusion several years prior. She presented to my clinic with intractable back pain refractory to conservative measures. Her imaging studies revealed adjacent segment pathology at L2-L3 with severe disk height loss noted changes and retrolisthesis. I recommended lateral lumbar interbody fusion at L2-L3 to correct her spondylolisthesis and to restore disk height. I reviewed the pertinent risks and benefits of the operation. The patient agreed to proceed. DETAILS OF THE OPERATION: The patient was taken to the operating theater by anesthesia. She was intubated without difficulty and she was positioned in the right lateral decubitus position left side up and all pressure points were padded to prevent peripheral nerve injury. Her eyes were lubricated and taped shut to prevent corneal abrasion. The location of the skin incision was determined with the use of AP and lateral fluoroscopy. The area was prepped and draped in the usual sterile fashion. The skin was infiltrated with 1% lidocaine with epinephrine. The skin was opened with #10 scalpel blade. Further dissection was performed with electrosurgical generator of Nael Love. The layers of the lateral abdominal wall were sharply dissected with Adson and Metzenbaum scissors. Transversalis fascia was opened to gain access to the retroperitoneal fat using lateral fluoroscopy. Sequential dilators were placed overlying the L2-L3 disk space and a 90-cm lateral retractor was placed and secured with the flexible arm. The disk space was stimulated to ensure there was no nerve encroachment. The danyelle device was placed into the L2-L3 disk and the retractor was opened for facilitating access to the disk space. The disk space was opened with a #15 scalpel blade. Variety of instruments were used to open the disk space including Elise elevators, annie, rasps and curettes. Disk material was removed. Cartilaginous endplates were debrided. Various trials were placed into the L2-L3 disk space in preparation for implant placement. Ultimately, the 8 x 60 mm cage was inserted into the L2-L3 disk space under AP fluoroscopy and expanded until appropriate disk space height was restored and there was appropriate endplate contact. Appropriate location of the implant was confirmed via lateral fluoroscopy. The superior screw was placed to secure the implant. No inferior screw was placed due to the proximity of the inferior pedicle screws from the prior operation. Soft tissues were copiously irrigated with saline. Finally, attention was directed to closure. Abdominal fascia was closed with 2-0 polyglactin synthetic absorbable suture. The dermis was closed with 2-0 polyglactin synthetic absorbable suture in an inverted fashion. Soft tissues were infiltrated with 0.25% Marcaine plain. The skin was reapproximated with Dermabond. Please note that all needle counts, sponge counts and instrument counts were correct at the end of the case x2. There were no neuromonitoring changes throughout the duration of the operation, the patient was returned to anesthesia where she was extubated without delay. She was transferred to the recovery room in stable condition. TID: [id number] RECEIPT: [id number] LUIS ANGEL/BATSHEVA
== END 2021-09-08 13:35 | disposition home or self-care (01) | DRG 460 ==
LOC: 3A 09-07 06:14
PROVIDERS: ADMIT Psychiatry & Neurology Neurology; ATTEND Psychiatry & Neurology Neurology
PROC: 0SG00A0 Fusion of Lumbar Vertebral Joint with Interbody Fusion Device, Anterior Approach, Anterior Column, Open Approach (ICD-10-PCS; principal; 2021-09-07)
PROC: 4A11X4G Monitoring of Peripheral Nervous Electrical Activity, Intraoperative, External Approach (ICD-10-PCS; 2021-09-07)
DX: M48.062 Spinal stenosis, lumbar region with neurogenic claudication (principal); E66.9 Obesity, unspecified; Z68.36 Body mass index [BMI] 36.0-36.9, adult; I10 Essential (primary) hypertension; K21.9 Gastro-esophageal reflux disease without esophagitis; Z20.822 Contact with and (suspected) exposure to COVID-19
CPT/HCPCS: 36415; 72100; 80048; 85014; 85018; 86850; 86900; 86901; 94760; G0378; J1815; J3490; J7121; Q0162; C1713; C1762; J0330; J0690; J1100; J1170; J1885; J2250; J2270; J2405; J2704; J3010; J3370; J3475; J7030; J7120; P9045; U0003

== ENCOUNTER 2021-10-17 09:04 | Outpatient (CLI) | payer BC ==
--- NOTE | 2021-10-17 10:01 | XRay Report ---
LUMBAR SPINE 3 VIEWS INDICATION: M54.41 LUMBAGO W/ SCIATICA,RIGHT SIDE COMPARISON: 09/07/2021 FINDINGS: Transverse and posterior fusion hardware projects in expected position. No acute skeletal abnormality . Chronic mild compression deformity is seen at L1. There is minimal retrolisthesis of L2 on L3. Mild spondylosis. IMPRESSION: Satisfactory postop appearance. Signer Name: Mariano Seo MD Signed: 10/17/2021 9:56 AM Workstation Name: [id number]
== END 2021-10-17 09:05 | disposition home or self-care (01) ==
LOC: XRAY 09:04
PROVIDERS: ATTEND Psychiatry & Neurology Neurology
DX: M47.816 Spondylosis without myelopathy or radiculopathy, lumbar region (principal); M54.41 Lumbago with sciatica, right side
CPT/HCPCS: 72100